=== PATIENT | male | born 1985 | race Caucasian/White ===

== ENCOUNTER 2018-09-08 14:53 | Inpatient (IN) | payer OTHER ==
[2018-09-08 17:21] VITALS: BMI 21.9
--- NOTE | 2018-09-08 19:47 | HP ---
CIWA Score - Admission Criteria OASAS Guidelines: Admission for Medically Managed Detox: Requires at least one of the followin. CIWA greater than 12 2. Seizures within the past 24 hours 3. Delirium tremens within the past 24 hours 4. Hallucinations within the past 24 hours 5. Acute intervention needed for co occurring medical disorder 6. Acute intervention needed for co occurring psychiatric disorder 7. Severe withdrawal that cannot be handled at a lower level of care (continued vomiting, continued diarrhea, abnormal vital signs) requiring intravenous medication and/or fluids 8. Admission ROS S - HPI Chief Complaint: Seeking admission to Rehab. Allergies/Adverse Reactions: Allergies Allergy/AdvReac Type Severity Reaction Status Date / Time shellfish derived Allergy Severe Swelling Verified 09/08/18 18:14 No Known Drug Allergies Allergy Unknown Verified 09/08/18 18:14 seafood Allergy Severe Swelling Uncoded 09/08/18 18:14 NKDA Allergy Uncoded 09/08/18 18:14 History of Present Illness: 33 years old male is seeking admission to Rehab. Patient has been in previous Rehab. at [place], [place]. Patient has medical history of asthma and low back pain. Denies suicide attempt or suicidal ideation at this time. Exam Limitations: No Limitations - Ebola screening Have you traveled outside of the country in the last 21 days: No Have you had contact with anyone from an Ebola affected area: No Have you been sick,other than usual withdrawal symptoms: No Do you have a fever: No - Review of Systems Constitutional: No Symptoms Reported EENT: reports: No Symptoms Reported Respiratory: reports: No Symptoms reported Cardiac: reports: No Symptoms Reported GI: reports: No Symptoms Reported : reports: No Symptoms Reported Musculoskeletal: reports: No Symptoms Reported Integumentary: reports: No Symptoms Reported Neuro: reports: No Symptoms reported Endocrine: reports: No Symptoms Reported Hematology: reports: No Symptoms Reported Psychiatric: reports: Judgement Intact, Mood/Affect Appropiate, Orientated x3 Other Systems: Reviewed and Negative Patient History - Patient Medical History Hx Anemia: No Hx Asthma: Yes (Not on medication) Hx Chronic Obstructive Pulmonary Disease (COPD): No Hx Cancer: No Hx Cardiac Disorders: No Hx Congestive Heart Failure: No Hx Hypertension: No Hx Hypercholesterolemia: No Hx Pacemaker: No HX Cerebrovascular Accident: No Hx Seizures: No Hx Dementia: No Hx Diabetes: No Hx Gastrointestinal Disorders: No Hx Liver Disease: No Hx Genitourinary Disorders: No Hx Sexually Transmitted Disorders: No Hx Renal Disease (ESRD): No Hx Thyroid Disease: No Hx Human Immunodeficiency Virus (HIV): No Hx Hepatitis C: No Hx Depression: No Hx Suicide Attempt: No (Denies suicidal ideation at this time) Hx Bipolar Disorder: No Hx Schizophrenia: No Other Medical History: low back pain- Not on medication - Patient Surgical History Past Surgical History: No Hx Neurologic Surgery: No Hx Cataract Extraction: No Hx Cardiac Surgery: No Hx Lung Surgery: No Hx Abdominal Surgery: No Hx Appendectomy: No Hx Cholecystectomy: No Hx Genitourinary Surgery: No Hx Orthopedic Surgery: No Anesthesia Reaction: No - PPD History Previous Implant?: Yes Documented Results: Negative w/o proof Implanted On Prior [facility] Admission?: No Date: 06/06/18 PPD to be Administered?: Yes - Reproductive History Patient is a Female of Child Bearing Age (11 -55 yrs old): No (Male) - Smoking Cessation Smoking history: Current every day smoker Have you smoked in the past 12 months: Yes Aproximately how many cigarettes per day: 20 Cigars Per Day: 0 Hx Chewing Tobacco Use: No Initiated information on smoking cessation: Yes 'Breaking Loose' booklet given: 09/08/18 - Substance & Tx. History Hx Alcohol Use: No Hx Substance Use: Yes Substance Use Type: Cocaine, Heroin, Marijuana, Tranquilizers Hx Substance Use Treatment: Yes - Substances Abused Heroin Route: Inhalation Frequency: Daily Amount used: 1 bundle Age of first use: 27 Date of Last Use: 09/08/18 Cocaine Route: Inhalation Frequency: 1-3 times last 30 days Amount used: 1/2 gm Age of first use: 18 Family Disease History - Family Disease History Family History: Denies Admission Physical Exam [facility] - Vital Signs Vital Signs: Vital Signs - 24 hr 09/08/18 17:15 Temperature 96.9 F L Pulse Rate 80 Respiratory 18 Rate Blood Pressure 104/61 - Physical General Appearance: Yes: Within Normal Limits HEENTM: Yes: Within Normal Limits, Normocephalic, Normal Voice, ANTONI Respiratory: Yes: Lungs Clear, Normal Breath Sounds, No Respiratory Distress Neck: Yes: Supple Breast: Yes: Breast Exam Deferred Cardiology: Yes: Regular Rhythm, Regular Rate Abdominal: Yes: Normal Bowel Sounds Genitourinary: Yes: Within Normal Limits Back: Yes: Normal Inspection Musculoskeletal: Yes: Within Normal Limits Extremities: Yes: Normal Capillary Refill Neurological: Yes: stretcher helper II-XII NML intact, Alert, Normal Mood/Affect Integumentary: Yes: Within Normal Limits Lymphatic: Yes: Within Normal Limits - Diagnostic (1) Asthma Current Visit: Yes Status: Chronic (2) Cocaine dependence Current Visit: Yes Status: Suspected Qualifiers: Substance use status: uncomplicated Qualified Code(s): F14.20 - Cocaine dependence, uncomplicated (3) Nicotine dependence Current Visit: Yes Status: Chronic Qualifiers: Nicotine product type: cigarettes Substance use status: uncomplicated Qualified Code(s): F17.210 - Nicotine dependence, cigarettes, uncomplicated (4) Opioid dependence Current Visit: Yes Status: Chronic Qualifiers: Substance use status: uncomplicated Qualified Code(s): F11.20 - Opioid dependence, uncomplicated Cleared for Admission [facility] - Detox or Rehab [facility] Level of Care: Observation Bed Claeared for Rehab Admission: Yes [facility] Breath Alcohol Content Breath Alcohol Content: 0 Urine Drug Screen - Results Drug Screen Negative: No Urine Drug Screen Results: THC-Marijuana, ALEKSEY-Cocaine, OPI-Opiates, MDMA-Ecstasy , MTD-Methadone, FEN-Fentanyl Inpatient Rehab Admission - Initial Determination Are CD services needed?: Yes Free of communicable disease: Yes Not in need of hospitalization: Yes - Rehab Admission Criteria Previous failed treatment: Yes Poor recovery environment: Yes Comorbidities: Yes Lacks judgement: No Patient is meeting Inpatient Rehab admission criteria:: Yes
[2018-09-08] MEDS ORDERED: NICOTINE POLACRILEX 2 MG GUM BC PRN (20:01)
[2018-09-08] MEDS ORDERED: LOPERAMIDE HCL 2 MG CAPSULE PO PRN (20:01)
[2018-09-08] MEDS ORDERED: MAGNESIUM HYDROX 2400MG/30ML ORAL SUSPENSION 30 ML CUP PO PRN (20:01)
[2018-09-08] MEDS ORDERED: MENTHOL/PHENOL 1 EACH UD MM PRN (20:01)
[2018-09-08] MEDS ORDERED: guaiFENesin/D-METHORPHAN HB 10 ML UNIT-DOSE CUPS PO PRN (20:01)
[2018-09-08] MEDS ORDERED: MAGNESIUM CITRATE 300 ML BOTTLE PO PRN (20:01)
[2018-09-08] MEDS ORDERED: P-EPHED 60MG/TRIPROLIDI 2.5MG TABLET PO PRN (20:01)
[2018-09-08] MEDS ORDERED: ACETAMINOPHEN 325 MG TABLET (FP) PO PRN (20:01)
[2018-09-08] MEDS ORDERED: MAG HYDROX/AL HYDROX/SIMETH 30 ML UNIT-DOSE CUP PO PRN (20:01)
[2018-09-08] MEDS ORDERED: IBUPROFEN 400 MG TABLET (FP) PO PRN (20:01)
[2018-09-08] MEDS ORDERED: MELATONIN 5 MG TABLETS PO PRN (22:00)
[2018-09-08] MEDS: THIAMINE HCL 100 MG TABLET (FP) PO SCH (22:28)
[2018-09-08] MEDS ORDERED: TUBERCULIN PPD 5 TU/0.1ML VIAL ID ONE (22:31)
[2018-09-09 03:12] LABS: URINE APPEARANCE CLEAR; URINE BILIRUBIN NEGATIVE (<2.0 mg/dL); URINE COLOR YELLOW; URINE GLUCOSE (UA) NEGATIVE (NEGATIVE); URINE KETONE NEGATIVE (NEGATIVE); URINE LEUK ESTERASE NEGATIVE (NEGATIVE); URINE NITRITE NEGATIVE (NEGATIVE); URINE PROTEIN NEGATIVE (NEGATIVE)
[2018-09-09] MEDS ORDERED: METHADONE HCL 10 MG TABLET PO ONE (09:42)
[2018-09-09] MEDS ORDERED: METHADONE 80 MG, METHADONE 20 MG PO ONE (10:00)
[2018-09-09] MEDS ORDERED: METHADONE HCL 10 MG TABLET ONE (10:01)
[2018-09-09] MEDS ORDERED: METHADONE HCL 40 MG DISPERSABLE TABLET ONE (10:02)
[2018-09-09] MEDS: PRENATAL VITAMINS W/ FOLIC ACID TABLET (FP) PO SCH (10:16)
[2018-09-09] MEDS: NICOTINE 14 MG/24 HOURS TOPICAL PATCH TD SCH (10:16)
--- NOTE | 2018-09-09 10:46 | HP ---
Psychiatrist Admission - Data Date of interview: 09/09/18 Admission source: [facility] Identifying data: Patient is a 33 year old single male, father of four, unemployed (denies receiving financial assistance) and is currently homeless. This is patient's first admission to rehab at [facility]. Patient admitted to for opiate dependence. Medical History: Asthma Psychiatric History: Patient denies h/o psychiatric hospitalizations, outpatient care, and suicide attempt. Patient is currently on methadone maintenance of 100mg daily at the [facility]. Physical/Sexual Abuse/Trauma History: denies. Vital Signs: Vital Signs - 24 hr 09/08/18 09/08/18 09/09/18 17:15 22:00 00:30 Temperature 96.9 F L 97.9 F Pulse Rate 80 76 Respiratory 18 18 18 Rate Blood Pressure 104/61 119/65 09/09/18 09/09/18 03:30 06:42 Temperature 98.4 F Pulse Rate 72 Respiratory 18 16 Rate Blood Pressure 109/66 Allergies/Adverse Reactions: Allergies Allergy/AdvReac Type Severity Reaction Status Date / Time shellfish derived Allergy Severe Swelling Verified 09/08/18 18:14 No Known Drug Allergies Allergy Unknown Verified 09/08/18 18:14 seafood Allergy Severe Swelling Uncoded 09/08/18 18:14 NKDA Allergy Uncoded 09/08/18 18:14 Date of last physical exam: 09/08/18 Concur with the findings of this exam: Yes - Substance Abuse/Tx History Hx Alcohol Use: No Hx Substance Use: Yes (Heroin- 1.5 bundle daily Cocaine- rarely) Substance Use Type: Cocaine, Heroin Hx Substance Use Treatment: Yes ([facility]) Mental Status Exam - Mental Status Exam Alert and Oriented to: Time, Place, Person Cognitive Function: Good Patient Appearance: Well Groomed Mood: Hopeful Affect: Appropriate Patient Behavior: Appropriate, Cooperative Speech Pattern: Clear, Appropriate Voice Loudness: Normal Thought Process: Intact, Goal Oriented Thought Disorder: Not Present Hallucinations: Denies Suicidal Ideation: Denies Homicidal Ideation: Denies Insight/Judgement: Poor Sleep: Fair Appetite: Fair Muscle strength/Tone: Normal Gait/Station: Normal Psychiatric Findings - Problem List ([place] 1, 2,3) (1) Methadone maintenance therapy patient Current Visit: Yes Status: Chronic (2) Opioid dependence Current Visit: Yes Status: Acute Qualifiers: Substance use status: uncomplicated Qualified Code(s): F11.20 - Opioid dependence, uncomplicated (3) Cocaine dependence Current Visit: No Status: Suspected Qualifiers: Substance use status: uncomplicated Qualified Code(s): F14.20 - Cocaine dependence, uncomplicated (4) Nicotine dependence Current Visit: Yes Status: Chronic Qualifiers: Nicotine product type: cigarettes Substance use status: uncomplicated Qualified Code(s): F17.210 - Nicotine dependence, cigarettes, uncomplicated - Initial Treatment Plan Initial Treatment Plan: Psychoeducation provided. Detoxification intoxicaton in progress. Observation.
[2018-09-09 15:15] LABS: HEMATOCRIT 42.8 % (35.4-49); HEMOGLOBIN 14.6 GM/dL (11.7-16.9); MCH 30.2 pg (25.7-33.7); MCHC 34.2 g/dl (32.0-35.9); MEAN CELL VOLUME 88.3 fl (80-96); MEAN PLT VOLUME 10.2 fl (7.5-11.1); PLATELET COUNT 229 K/MM3 (134-434); RBC 4.85 M/mm3 (4.00-5.60); RDW 14.5 % (11.9-15.9); WHITE BLOOD COUNT 4.1 K/mm3 (4.0-10.0)
[2018-09-09 15:30] LABS: ALBUMIN 3.6 g/dl (3.4-5.0); ALK PHOS 57 U/L (45-117); ANION GAP 8 MMOL/L (8-16); BILIRUBIN,TOTAL 0.2 mg/dL (0.2-1); BLOOD UREA NITROGEN 13 mg/dL (7-18); CALCIUM 8.8 mg/dL (8.5-10.1); CHLORIDE 104 mmol/L (98-107); CO2 28 mmol/L (21-32); CREATININE 0.7 mg/dL (0.55-1.3); GLUCOSE,RANDOM 80 mg/dL (74-106); POTASSIUM 4.4 mmol/L (3.5-5.1); SGOT/AST 16 U/L (15-37); SGPT/ALT 29 U/L (13-61); SODIUM 141 mmol/L (136-145); TOT PROT 6.6 g/dl (6.4-8.2)
[2018-09-09] MEDS: THIAMINE HCL 100 MG TABLET (FP) PO SCH (21:04)
[2018-09-10] MEDS ORDERED: METHADONE HCL 10 MG TABLET PO SCH (06:00)
[2018-09-10] MEDS: METHADONE 80 MG, METHADONE 20 MG PO SCH (06:25)
[2018-09-10] MEDS ORDERED: METHADONE HCL 40 MG DISPERSABLE TABLET ONE (06:25)
[2018-09-10] MEDS ORDERED: METHADONE HCL 10 MG TABLET ONE (06:25)
[2018-09-10] MEDS: PRENATAL VITAMINS W/ FOLIC ACID TABLET (FP) PO SCH (09:55)
[2018-09-10] MEDS: NICOTINE 14 MG/24 HOURS TOPICAL PATCH TD SCH (09:57)
--- NOTE | 2018-09-10 15:44 | EKG ---
Test Reason : Blood Pressure : / mmHG Vent. Rate : 066 BPM Atrial Rate : 066 BPM P-R Int : 160 ms QRS Dur : 100 ms QT Int : 400 ms P-R-T Axes : 070 076 066 degrees QTc Int : 419 ms POOR DATA QUALITY, INTERPRETATION MAY BE ADVERSELY AFFECTED NORMAL SINUS RHYTHM NORMAL ECG WHEN COMPARED WITH ECG OF 04-JUN-2018 16:36, INCOMPLETE RIGHT BUNDLE BRANCH BLOCK IS NO LONGER PRESENT Confirmed by ELIDA NINO, SAM ([id number]) on 09/10/2018 3:43:57 PM Referred By: Confirmed By:SAM MARRERO MD
[2018-09-10] MEDS: THIAMINE HCL 100 MG TABLET (FP) PO SCH (21:08)
[2018-09-11] MEDS ORDERED: METHADONE HCL 10 MG TABLET ONE (04:29)
[2018-09-11] MEDS ORDERED: METHADONE HCL 40 MG DISPERSABLE TABLET ONE (04:29)
[2018-09-11] MEDS: METHADONE 80 MG, METHADONE 20 MG PO SCH (06:44)
[2018-09-11] MEDS: NICOTINE 14 MG/24 HOURS TOPICAL PATCH TD SCH (09:28)
[2018-09-11] MEDS: PRENATAL VITAMINS W/ FOLIC ACID TABLET (FP) PO SCH (09:28)
[2018-09-11] MEDS: THIAMINE HCL 100 MG TABLET (FP) PO SCH (21:08)
[2018-09-12] MEDS ORDERED: METHADONE HCL 10 MG TABLET ONE (04:45)
[2018-09-12] MEDS ORDERED: METHADONE HCL 40 MG DISPERSABLE TABLET ONE (04:46)
[2018-09-12] MEDS: METHADONE 80 MG, METHADONE 20 MG PO SCH (06:31)
[2018-09-12] MEDS: PRENATAL VITAMINS W/ FOLIC ACID TABLET (FP) PO SCH (09:31)
[2018-09-12] MEDS: NICOTINE 14 MG/24 HOURS TOPICAL PATCH TD SCH (09:31)
[2018-09-12] MEDS: THIAMINE HCL 100 MG TABLET (FP) PO SCH (21:00)
[2018-09-13] MEDS ORDERED: METHADONE HCL 40 MG DISPERSABLE TABLET ONE (03:08)
[2018-09-13] MEDS ORDERED: METHADONE HCL 10 MG TABLET ONE (03:08)
[2018-09-13] MEDS: METHADONE 80 MG, METHADONE 20 MG PO SCH (06:11)
[2018-09-13] MEDS: NICOTINE 14 MG/24 HOURS TOPICAL PATCH TD SCH (09:33)
[2018-09-13] MEDS: PRENATAL VITAMINS W/ FOLIC ACID TABLET (FP) PO SCH (09:33)
[2018-09-13] MEDS: THIAMINE HCL 100 MG TABLET (FP) PO SCH (21:01)
[2018-09-14] MEDS ORDERED: METHADONE HCL 10 MG TABLET ONE (03:08)
[2018-09-14] MEDS ORDERED: METHADONE HCL 40 MG DISPERSABLE TABLET ONE (03:08)
[2018-09-14] MEDS: METHADONE 80 MG, METHADONE 20 MG PO SCH (06:39)
[2018-09-14] MEDS: PRENATAL VITAMINS W/ FOLIC ACID TABLET (FP) PO SCH (09:31)
[2018-09-14] MEDS: NICOTINE 14 MG/24 HOURS TOPICAL PATCH TD SCH (09:31)
[2018-09-14] MEDS: THIAMINE HCL 100 MG TABLET (FP) PO SCH (21:00)
[2018-09-15] MEDS ORDERED: METHADONE HCL 10 MG TABLET ONE (05:12)
[2018-09-15] MEDS ORDERED: METHADONE HCL 40 MG DISPERSABLE TABLET ONE (05:13)
[2018-09-15] MEDS: METHADONE 80 MG, METHADONE 20 MG PO SCH (06:28)
[2018-09-15] MEDS: PRENATAL VITAMINS W/ FOLIC ACID TABLET (FP) PO SCH (10:02)
[2018-09-15] MEDS: NICOTINE 14 MG/24 HOURS TOPICAL PATCH TD SCH (10:02)
--- NOTE | 2018-09-15 14:20 | PN ---
Psychiatric Progress Note Vital Signs: Vital Signs Period Temp Pulse Resp BP Sys/Goins Pulse Ox Last 24 Hr 97.9 F 74 18-18 117/82 Date of Session: 09/15/18 Chief Complaint:: "I can't sleep." HPI: Patient admitted to for opiate dependence. ROS: Asthma Current Medications: Active Medications Generic Name Dose Route Start Last Admin Trade Name Freq PRN Reason Stop Dose Admin Acetaminophen 650 mg 09/08/18 20:01 Tylenol - PO Q4H PRN FEVER Al Hydroxide/Mg Hydroxide 30 ml 09/08/18 20:01 Mylanta Oral Suspension - PO Q6H PRN DYSPEPSIA Eucalyptus/Menthol/Phenol/Sorbitol 1 each 09/08/18 20:01 Cepastat Lozenge - MM Q4H PRN SORE THROAT Guaifenesin 10 ml 09/08/18 20:01 Robitussin Dm - PO Q6H PRN COUGH Ibuprofen 400 mg 09/08/18 20:01 Motrin - PO Q6H PRN Pain level 4-6 Loperamide HCl 4 mg 09/08/18 20:01 Imodium - PO Q6H PRN DIARRHEA Magnesium Citrate 300 ml 09/08/18 20:01 Citroma - PO Q48H PRN CONSTIPATION Magnesium Hydroxide 30 ml 09/08/18 20:01 Milk Of Magnesia - PO DAILY PRN CONSTIPATION Melatonin 5 mg 09/08/18 22:00 Melatonin PO HS PRN INSOMNIA Methadone HCl 80 mg/ Methadone 100 mg 09/10/18 06:00 09/15/18 06:28 HCl 20 mg PO 09/16/18 05:59 100 mg DAILY@0600 GAIL Administration Nicotine 14 mg 09/09/18 10:00 09/15/18 10:02 Nicoderm Patch - TD Not Given DAILY GAIL Nicotine Polacrilex 2 mg 09/08/18 20:01 Nicorette Gum - BC Q2H PRN NICOTINE REPLACEMENT RX Multivit/Folic Acid/Iron 1 tab 09/09/18 10:00 09/15/18 10:02 Vitamins (Sjr) - PO 1 tab DAILY GAIL Administration Pseudoephedrine/Triprolidine 1 combo 09/08/18 20:01 Actifed - PO TID PRN NASAL CONGESTION Thiamine HCl 100 mg 09/08/18 22:00 09/14/18 21:00 Vitamin B1 - PO 100 mg HS GAIL Administration Medication(s) Change(s): Yes. Will add Seroquel 25mg qhs. Current Side Effect: No Lab tests ordered: No Lab tests reviewed: Yes Provider note:: Patient c/o difficulty sleeping. He reports taking melatonin and trazodone in the past with non favorable effects. Patient reports taking seroquel with good effect. Will order seroquel 25mg qhs. Psychoeducation and sleep hygiene provided. Verbal consent given. Total face to face time:: 25 Mental Status Exam - Mental Status Exam Alert and Oriented to: Time, Place, Person Cognitive Function: Good Patient Appearance: Well Groomed Mood: Hopeful Affect: Appropriate Patient Behavior: Appropriate, Cooperative Speech Pattern: Appropriate Voice Loudness: Normal Thought Process: Intact, Goal Oriented Thought Disorder: Not Present Hallucinations: Denies Suicidal Ideation: Denies Homicidal Ideation: Denies Insight/Judgement: Poor Sleep: Poorly Appetite: Fair Muscle strength/Tone: Normal Gait/Station: Normal Psychiatric Treatment Plan - Problem List (1) Methadone maintenance therapy patient Current Visit: Yes (2) Opioid dependence Current Visit: Yes Qualifiers: Substance use status: uncomplicated Qualified Code(s): F11.20 - Opioid dependence, uncomplicated (3) Cocaine dependence Current Visit: No Qualifiers: Substance use status: uncomplicated Qualified Code(s): F14.20 - Cocaine dependence, uncomplicated (4) Nicotine dependence Current Visit: Yes Qualifiers: Nicotine product type: cigarettes Substance use status: uncomplicated Qualified Code(s): F17.210 - Nicotine dependence, cigarettes, uncomplicated (5) Insomnia Current Visit: Yes
[2018-09-15] MEDS: QUEtiapine FUMARATE 25 MG TABLET (FP) PO SCH (21:00)
[2018-09-15] MEDS: THIAMINE HCL 100 MG TABLET (FP) PO SCH (21:00)
[2018-09-16] MEDS ORDERED: METHADONE HCL 10 MG TABLET PO SCH (07:00)
[2018-09-16] MEDS ORDERED: METHADONE HCL 40 MG DISPERSABLE TABLET ONE (07:15)
[2018-09-16] MEDS ORDERED: METHADONE HCL 10 MG TABLET ONE (07:15)
[2018-09-16] MEDS: METHADONE 80 MG, METHADONE 20 MG PO SCH (07:26)
[2018-09-16] MEDS: PRENATAL VITAMINS W/ FOLIC ACID TABLET (FP) PO SCH (10:03)
[2018-09-16] MEDS: NICOTINE 14 MG/24 HOURS TOPICAL PATCH TD SCH (10:03)
[2018-09-16] MEDS: THIAMINE HCL 100 MG TABLET (FP) PO SCH (21:11)
[2018-09-16] MEDS: QUEtiapine FUMARATE 25 MG TABLET (FP) PO SCH (21:11)
[2018-09-17] MEDS ORDERED: METHADONE HCL 40 MG DISPERSABLE TABLET ONE (03:15)
[2018-09-17] MEDS ORDERED: METHADONE HCL 10 MG TABLET ONE (03:15)
[2018-09-17] MEDS: METHADONE 80 MG, METHADONE 20 MG PO SCH (06:49)
[2018-09-17] MEDS: PRENATAL VITAMINS W/ FOLIC ACID TABLET (FP) PO SCH (09:48)
[2018-09-17] MEDS: NICOTINE 14 MG/24 HOURS TOPICAL PATCH TD SCH (09:49)
[2018-09-17] MEDS: QUEtiapine FUMARATE 25 MG TABLET (FP) PO SCH (21:10)
[2018-09-17] MEDS: THIAMINE HCL 100 MG TABLET (FP) PO SCH (21:10)
[2018-09-18] MEDS ORDERED: METHADONE HCL 10 MG TABLET ONE (03:11)
[2018-09-18] MEDS ORDERED: METHADONE HCL 40 MG DISPERSABLE TABLET ONE (03:11)
[2018-09-18] MEDS: METHADONE 80 MG, METHADONE 20 MG PO SCH (06:09)
[2018-09-18] MEDS: PRENATAL VITAMINS W/ FOLIC ACID TABLET (FP) PO SCH (10:12)
[2018-09-18] MEDS: NICOTINE 14 MG/24 HOURS TOPICAL PATCH TD SCH (10:12)
[2018-09-18] MEDS: QUEtiapine FUMARATE 25 MG TABLET (FP) PO SCH (21:04)
[2018-09-18] MEDS: THIAMINE HCL 100 MG TABLET (FP) PO SCH (21:04)
[2018-09-19] MEDS ORDERED: METHADONE HCL 10 MG TABLET ONE (04:16)
[2018-09-19] MEDS ORDERED: METHADONE HCL 40 MG DISPERSABLE TABLET ONE (04:16)
[2018-09-19] MEDS: METHADONE 80 MG, METHADONE 20 MG PO SCH (06:15)
[2018-09-19] MEDS: PRENATAL VITAMINS W/ FOLIC ACID TABLET (FP) PO SCH (09:46)
[2018-09-19] MEDS: NICOTINE 14 MG/24 HOURS TOPICAL PATCH TD SCH (09:47)
[2018-09-19] MEDS: THIAMINE HCL 100 MG TABLET (FP) PO SCH (21:04)
[2018-09-19] MEDS: QUEtiapine FUMARATE 25 MG TABLET (FP) PO SCH (21:04)
[2018-09-20] MEDS ORDERED: METHADONE HCL 10 MG TABLET ONE (04:15)
[2018-09-20] MEDS ORDERED: METHADONE HCL 40 MG DISPERSABLE TABLET ONE (04:15)
[2018-09-20] MEDS: METHADONE 80 MG, METHADONE 20 MG PO SCH (06:18)
[2018-09-20] MEDS: NICOTINE 14 MG/24 HOURS TOPICAL PATCH TD SCH (09:31)
[2018-09-20] MEDS: PRENATAL VITAMINS W/ FOLIC ACID TABLET (FP) PO SCH (09:31)
[2018-09-20] MEDS: QUEtiapine FUMARATE 25 MG TABLET (FP) PO SCH (21:00)
[2018-09-20] MEDS: THIAMINE HCL 100 MG TABLET (FP) PO SCH (21:00)
[2018-09-21] MEDS ORDERED: METHADONE HCL 10 MG TABLET ONE (02:11)
[2018-09-21] MEDS ORDERED: METHADONE HCL 40 MG DISPERSABLE TABLET ONE (02:12)
[2018-09-21] MEDS: METHADONE 80 MG, METHADONE 20 MG PO SCH (06:14)
[2018-09-21] MEDS: PRENATAL VITAMINS W/ FOLIC ACID TABLET (FP) PO SCH (09:41)
[2018-09-21] MEDS: NICOTINE 14 MG/24 HOURS TOPICAL PATCH TD SCH (09:41)
--- NOTE | 2018-09-21 10:43 | PN ---
Psychiatric Progress Note Vital Signs: Vital Signs Period Temp Pulse Resp BP Sys/Goins Pulse Ox Last 24 Hr 97.4 F 82 18-18 108/62 Date of Session: 09/21/18 Chief Complaint:: Discharge Note HPI: Patient addressing Cocaine Dependence comormid with Opioid Dependence on Agonist Therapy, Nicotine Dependence ROS: Asthma Current Medications: Active Medications Generic Name Dose Route Start Last Admin Trade Name Freq PRN Reason Stop Dose Admin Acetaminophen 650 mg 09/08/18 20:01 Tylenol - PO Q4H PRN FEVER Al Hydroxide/Mg Hydroxide 30 ml 09/08/18 20:01 Mylanta Oral Suspension - PO Q6H PRN DYSPEPSIA Eucalyptus/Menthol/Phenol/Sorbitol 1 each 09/08/18 20:01 Cepastat Lozenge - MM Q4H PRN SORE THROAT Guaifenesin 10 ml 09/08/18 20:01 Robitussin Dm - PO Q6H PRN COUGH Ibuprofen 400 mg 09/08/18 20:01 Motrin - PO Q6H PRN Pain level 4-6 Loperamide HCl 4 mg 09/08/18 20:01 Imodium - PO Q6H PRN DIARRHEA Magnesium Citrate 300 ml 09/08/18 20:01 Citroma - PO Q48H PRN CONSTIPATION Magnesium Hydroxide 30 ml 09/08/18 20:01 Milk Of Magnesia - PO DAILY PRN CONSTIPATION Melatonin 5 mg 09/08/18 22:00 Melatonin PO HS PRN INSOMNIA Methadone HCl 80 mg/ Methadone 100 mg 09/16/18 07:15 09/21/18 06:14 HCl 20 mg PO 100 mg DAILY@0600 GAIL Administration Nicotine 14 mg 09/09/18 10:00 09/21/18 09:41 Nicoderm Patch - TD Not Given DAILY GAIL Nicotine Polacrilex 2 mg 09/08/18 20:01 Nicorette Gum - BC Q2H PRN NICOTINE REPLACEMENT RX Multivit/Folic Acid/Iron 1 tab 09/09/18 10:00 09/21/18 09:41 Vitamins (Sjr) - PO 1 tab DAILY GAIL Administration Pseudoephedrine/Triprolidine 1 combo 09/08/18 20:01 Actifed - PO TID PRN NASAL CONGESTION Quetiapine Fumarate 25 mg 09/15/18 22:00 09/20/18 21:00 Seroquel - PO 25 mg HS GAIL Administration Thiamine HCl 100 mg 09/08/18 22:00 09/20/18 21:00 Vitamin B1 - PO 100 mg HS GAIL Administration Current Side Effect: No Lab tests ordered: Yes Lab tests reviewed: Yes Provider note:: Patient will complete this program on 09/22/18. he has met his treatment goals and will continue to address his issues in outpatient treatnent at [facility] at [address] [place] [address]. Told bond writer that from his participation in this program, he has learned that he has to surround himself with a sober support network in order to maitain abstinence. He is stable for discharge on 09/22/18 Total face to face time:: 35 Mental Status Exam - Mental Status Exam Alert and Oriented to: Time, Place, Person Cognitive Function: Fair Patient Appearance: Well Groomed Mood: Hopeful, Euthymic Affect: Appropriate Patient Behavior: Cooperative Speech Pattern: Clear Voice Loudness: Normal Thought Process: Intact Thought Disorder: Not Present Hallucinations: Denies Suicidal Ideation: Denies Homicidal Ideation: Denies Insight/Judgement: Fair Sleep: Fair Appetite: Fair Muscle strength/Tone: Normal Psychiatric Treatment Plan - Problem List (1) Cocaine dependence Current Visit: No Qualifiers: Substance use status: uncomplicated Qualified Code(s): F14.20 - Cocaine dependence, uncomplicated (2) Opioid dependence on agonist therapy Current Visit: Yes (3) Nicotine dependence Current Visit: Yes Qualifiers: Nicotine product type: cigarettes Substance use status: uncomplicated Qualified Code(s): F17.210 - Nicotine dependence, cigarettes, uncomplicated (4) Asthma Current Visit: Yes Initial treatment plan: Patient will be discharged tomorrow and referred to [facility] for outpatient treatment
[2018-09-21] MEDS: THIAMINE HCL 100 MG TABLET (FP) PO SCH (21:02)
[2018-09-21] MEDS: QUEtiapine FUMARATE 25 MG TABLET (FP) PO SCH (21:02)
[2018-09-22] MEDS ORDERED: METHADONE HCL 10 MG TABLET ONE (03:20)
[2018-09-22] MEDS ORDERED: METHADONE HCL 40 MG DISPERSABLE TABLET ONE (03:21)
[2018-09-22] MEDS: METHADONE 80 MG, METHADONE 20 MG PO SCH (06:01)
[2018-09-22 06:57] VITALS: BP 131/82; PULSE 81; TEMP 98.9
[2018-09-22] MEDS: NICOTINE 14 MG/24 HOURS TOPICAL PATCH TD SCH (10:22)
[2018-09-22] MEDS: PRENATAL VITAMINS W/ FOLIC ACID TABLET (FP) PO SCH (10:23)
== END 2018-09-22 09:15 | disposition home or self-care (01) | DRG 772 ==
LOC: YASAS 14:53 → Y5N 20:38
PROVIDERS: ADMIT Psychiatry & Neurology Psychiatry; ATTEND Psychiatry & Neurology Psychiatry
PROC: HZ42ZZZ Group Counseling for Substance Abuse Treatment, Cognitive-Behavioral (ICD-10-PCS; principal; 2018-09-08)
DX: F14.20 Cocaine dependence, uncomplicated (principal); F11.20 Opioid dependence, uncomplicated; F17.210 Nicotine dependence, cigarettes, uncomplicated; G47.00 Insomnia, unspecified; J45.909 Unspecified asthma, uncomplicated; M54.5 Low back pain
CPT/HCPCS: 36415; 80053; 81003; 85027; 86593; 93005; 93010

== ENCOUNTER 2019-02-05 14:27 | Inpatient (IN) | payer SELFPAY ==
[2019-02-05 14:59] VITALS: BMI 21.4
--- NOTE | 2019-02-05 15:35 | HP ---
COWS - Scale Resting Pulse: 1= SC 81-100 Sweatin= Chills/Flushing Restless Observation: 3= Extraneous Movement Pupil Size: 1= Pupils >than Normal Bone or Joint Aches: 2= Severe Diffuse Aches Runny Nose/ Eye Tearin= Runny Nose/Eyes GI Upset > 30mins: 2= Nausea/Diarrhea Tremor Observation: 2= Slight Tremor Visible Yawning Observation: 2= >3x During Session Anxiety or Irritability: 2=Irritable/Anxious Goose Flesh Skin: 0=Smooth Skin COWS Score: 18 CIWA Score - Admission Criteria OASAS Guidelines: Admission for Medically Managed Detox: Requires at least one of the followin. CIWA greater than 12 2. Seizures within the past 24 hours 3. Delirium tremens within the past 24 hours 4. Hallucinations within the past 24 hours 5. Acute intervention needed for co occurring medical disorder 6. Acute intervention needed for co occurring psychiatric disorder 7. Severe withdrawal that cannot be handled at a lower level of care (continued vomiting, continued diarrhea, abnormal vital signs) requiring intravenous medication and/or fluids 8. Admission ROS S - HPI Chief Complaint: i need help to stop using heroin,cocaine,marijuana, Allergies/Adverse Reactions: Allergies Allergy/AdvReac Type Severity Reaction Status Date / Time fish derived Allergy Severe Swelling Verified 02/05/19 17:17 shellfish derived Allergy Severe Swelling Verified 02/05/19 16:17 No Known Drug Allergies Allergy Verified 02/05/19 17:17 seafood Allergy Severe Swelling Uncoded 02/05/19 16:17 NKDA Allergy Uncoded 02/05/19 16:17 History of Present Illness: this 33 years old male with heroin,cocaine and marijuana dependence seeking detox,withdrawal symptom, seeking help last rehab 09/08/18 to 09/22/18 weight loss nicotine dependence 1/2 pack,do not want nicotine replacement longest period of sobriety 6 months plan for rehab history of asthma Exam Limitations: No Limitations - Ebola screening Have you traveled outside of the country in the last 21 days: No Have you had contact with anyone from an Ebola affected area: No - Review of Systems Constitutional: Malaise, Night Sweats, Changes in sleep, Weakness, Weight Stable , Unintentional Wgt. Loss EENT: reports: Tearing, Nose Congestion Respiratory: reports: No Symptoms reported, Other (asthma) Cardiac: reports: No Symptoms Reported GI: reports: Diarrhea, Nausea, Abdominal cramping : reports: No Symptoms Reported Musculoskeletal: reports: Back Pain, Muscle Pain Integumentary: reports: Dryness Neuro: reports: Headache, Tremors Endocrine: reports: No Symptoms Reported Hematology: reports: No Symptoms Reported Psychiatric: reports: No Sypmtoms Reported, Judgement Intact, Mood/Affect Appropiate, Orientated x3 Other Systems: Reviewed and Negative Patient History - Patient Medical History Hx Anemia: No Hx Asthma: Yes (Not on medication) Hx Chronic Obstructive Pulmonary Disease (COPD): No Hx Cancer: No Hx Cardiac Disorders: No Hx Congestive Heart Failure: No Hx Hypertension: No Hx Hypercholesterolemia: No Hx Pacemaker: No HX Cerebrovascular Accident: No Hx Seizures: No Hx Dementia: No Hx Diabetes: No Hx Gastrointestinal Disorders: No Hx Liver Disease: No Hx Genitourinary Disorders: No Hx Sexually Transmitted Disorders: No Hx Renal Disease (ESRD): No Hx Thyroid Disease: No Hx Human Immunodeficiency Virus (HIV): No (01/06 negative) Hx Hepatitis C: No Hx Depression: No Hx Suicide Attempt: No (Denies suicidal ideation at this time) Hx Bipolar Disorder: No Hx Schizophrenia: No Other Medical History: no suicidal,no homicidal - Patient Surgical History Past Surgical History: No Hx Neurologic Surgery: No Hx Cataract Extraction: No Hx Cardiac Surgery: No Hx Lung Surgery: No Hx Breast Surgery: No Hx Breast Biopsy: No Hx Abdominal Surgery: No Hx Appendectomy: No Hx Cholecystectomy: No Hx Genitourinary Surgery: No Hx Section: No Hx Orthopedic Surgery: No Anesthesia Reaction: No - PPD History Previous Implant?: Yes Documented Results: Negative w/proof Implanted On Prior [facility] Admission?: Yes Date: 09/10/18 Results: 0 mm PPD to be Administered?: No - Smoking Cessation Smoking history: Current every day smoker Have you smoked in the past 12 months: Yes Aproximately how many cigarettes per day: 10 Cigars Per Day: 0 Hx Chewing Tobacco Use: No Initiated information on smoking cessation: Yes 'Breaking Loose' booklet given: 02/05/19 - Substance & Tx. History Hx Substance Use: Yes Substance Use Type: Cocaine, Heroin Hx Substance Use Treatment: Yes (C 09/08/18 to 09/22/18) - Substances abused Heroin Substance route: Inhalation Frequency: Daily Amount used: $60 Age of first use: 32 Date of last use: 02/05/19 Cocaine Substance route: Inhalation Frequency: 1-2 times per week Amount used: $40 monthly Age of first use: 17 Date of last use: 01/29/19 Family Disease History - Family Disease History Family History: Denies Admission Physical Exam [facility] - Vital Signs Vital Signs: Vital Signs - 24 hr 02/05/19 14:50 Temperature 96.5 F L Pulse Rate 87 Respiratory 18 Rate Blood Pressure 120/79 - Physical General Appearance: Yes: Moderate Distress, Tremorous, Irritable, Sweating, Anxious HEENTM: Yes: Normocephalic, ANTONI, Pharynx Normal Respiratory: Yes: Lungs Clear, Normal Breath Sounds, No Respiratory Distress Neck: Yes: Within Normal Limits, Supple, Trachea in good position Breast: Yes: Within Normal Limits Cardiology: Yes: Within Normal Limits, Regular Rhythm, Regular Rate, S1, S2 Abdominal: Yes: Within Normal Limits, Normal Bowel Sounds, Non Tender, Flat, Soft Genitourinary: Yes: Within Normal Limits Back: Yes: Muscle Spasm Musculoskeletal: Yes: full range of Motion, Back pain, Muscle Pain Extremities: Yes: Within Normal Limits, Normal Range of Motion, Tremors Neurological: Yes: Within Normal Limits, doormaker II-XII NML intact, Fully Oriented, Alert, Motor Strength 5/5 Integumentary: Yes: Dry Lymphatic: Yes: Within Normal Limits - Diagnostic (1) Opioid dependence with withdrawal Current Visit: Yes Status: Acute (2) Cocaine dependence Current Visit: No Status: Suspected Qualifiers: Substance use status: uncomplicated Qualified Code(s): F14.20 - Cocaine dependence, uncomplicated (3) Asthma Current Visit: No Status: Chronic (4) Nicotine dependence Current Visit: No Status: Chronic Qualifiers: Nicotine product type: cigarettes Substance use status: uncomplicated Qualified Code(s): F17.210 - Nicotine dependence, cigarettes, uncomplicated (5) Weight loss Current Visit: Yes Status: Acute Cleared for Admission [facility] - Detox or Rehab [facility] Level of Care: Medically Managed Detox Regimen/Protocol: Methadone Breathalyzer - Breathalyzer Breathalyzer: 0 Urine Drug Screen - Test Device Lot number: [id number] Expiration date: 01/18/20 - Control Is test valid?: Yes - Results Drug screen NEGATIVE: No Urine drug screen results: THC-Marijuana, ALEKSEY-Cocaine, MET-Methamphetamine, FEN- Fentanyl, MOP-Opiates Inpatient Rehab Admission - Rehab Decision to Admit Inpatient rehab admission?: No
[2019-02-05] MEDS ORDERED: MAGNESIUM HYDROX 2400MG/30ML ORAL SUSPENSION 30 ML CUP PO PRN (15:42)
[2019-02-05] MEDS ORDERED: BISMUTH SUBSALICYLATE 524 MG/30 ML UD PO PRN (15:42)
[2019-02-05] MEDS ORDERED: hydrOXYzine PAMOATE 25 MG CAPSULE (FP) PO PRN (15:42)
[2019-02-05] MEDS ORDERED: IBUPROFEN 400 MG TABLET (FP) PO PRN (15:42)
[2019-02-05] MEDS ORDERED: MAGNESIUM CITRATE 300 ML BOTTLE PO PRN (15:42)
[2019-02-05] MEDS ORDERED: MAG HYDROX/AL HYDROX/SIMETH 30 ML UNIT-DOSE CUP PO PRN (15:42)
[2019-02-05] MEDS ORDERED: ACETAMINOPHEN 325 MG TABLET (FP) PO PRN ×2 (15:42)
[2019-02-05] MEDS ORDERED: MELATONIN 5 MG TABLETS PO PRN (15:42)
[2019-02-05] MEDS ORDERED: MENTHOL/PHENOL 1 EACH UD MM PRN (15:42)
[2019-02-05] MEDS ORDERED: cloNIDine HCL 0.1 MG TABLET PO PRN (15:42)
[2019-02-05] MEDS ORDERED: METHADONE HCL 10 MG TABLET (FOR DETOX USE ONLY) PO ONE ×2 (17:30→23:00)
[2019-02-05] MEDS: diazePAM 5 MG TABLET PO PRN (17:40)
[2019-02-05 20:17] LABS: PH,URINE 6.5 (5.0-8.0); URINE APPEARANCE CLEAR; URINE BILIRUBIN NEGATIVE (NEGATIVE); URINE COLOR YELLOW; URINE GLUCOSE (UA) NEGATIVE (NEGATIVE); URINE KETONE NEGATIVE (NEGATIVE); URINE LEUK ESTERASE NEGATIVE (NEGATIVE); URINE NITRITE NEGATIVE (NEGATIVE); URINE PROTEIN NEGATIVE (NEGATIVE)
[2019-02-05] MEDS: THIAMINE HCL 100 MG TABLET (FP) PO SCH (22:33)
[2019-02-06] MEDS ORDERED: METHADONE HCL 10 MG TABLET (FOR DETOX USE ONLY) PO ONE (10:00)
[2019-02-06] MEDS: PRENATAL VITAMINS W/ FOLIC ACID TABLET (FP) PO SCH (10:24)
[2019-02-06 11:03] LABS: ALBUMIN 3.3 g/dl (3.4-5.0); ALK PHOS 58 U/L (45-117); ANION GAP 2 MMOL/L (8-16); BILIRUBIN,TOTAL 0.1 mg/dL (0.2-1); BLOOD UREA NITROGEN 10 mg/dL (7-18); CALCIUM 9.2 mg/dL (8.5-10.1); CHLORIDE 104 mmol/L (98-107); CO2 33 mmol/L (21-32); CREATININE 0.8 mg/dL (0.55-1.3); GLUCOSE,RANDOM 89 mg/dL (74-106); HEMATOCRIT 43.8 % (35.4-49); HEMOGLOBIN 14.7 GM/dL (11.7-16.9); MCHC 33.6 g/dl (32.0-35.9); MEAN CELL VOLUME 89.4 fl (80-96); MEAN PLT VOLUME 9.5 fl (7.5-11.1); PLATELET COUNT 218 K/MM3 (134-434); POTASSIUM 4.7 mmol/L (3.5-5.1); RDW 14.4 % (11.9-15.9); SGOT/AST 13 U/L (15-37); SGPT/ALT 17 U/L (13-61); SODIUM 139 mmol/L (136-145); TOT PROT 6.3 g/dl (6.4-8.2); WHITE BLOOD COUNT 4.3 K/mm3 (4.0-10.0)
--- NOTE | 2019-02-06 14:04 | PN ---
[facility] COWS - Scale Resting Pulse: 0= [place] 80 or Below Sweatin= Chills/Flushing Restless Observation: 0= Sits Still Pupil Size: 0= Normal to Room Light Bone or Joint Aches: 1= Mild Discomfort Runny Nose/ Eye Tearin= Nasal Congestion GI Upset > 30mins: 0= None Tremor Observation of Outstretched Hands: 1= Tremor [place], Not Seen Yawning Observation: 2= >3x During Session Anxiety or Irritability: 2=Irritable/Anxious Goose Flesh Skin: 0=Smooth Skin COWS Score: 8 S Progress Note (SOAP) Subjective: c/o interrupted sleep, fatigue , chills Objective: 02/06/19 14:03 Vital Signs Temperature 96.1 F L 02/06/19 11:31 Pulse Rate 68 02/06/19 11:31 Respiratory Rate 18 02/06/19 11:31 Blood Pressure 127/71 02/06/19 11:31 O2 Sat by Pulse Oximetry (%) Laboratory Last Values WBC 4.3 K/mm3 (4.0-10.0) 02/06/19 07:00 RBC 4.90 M/mm3 (4.00-5.60) 02/06/19 07:00 Hgb 14.7 GM/dL (11.7-16.9) 02/06/19 07:00 Hct 43.8 % (35.4-49) 02/06/19 07:00 MCV 89.4 fl (80-96) 02/06/19 07:00 MCH 30.0 pg (25.7-33.7) 02/06/19 07:00 MCHC 33.6 g/dl (32.0-35.9) 02/06/19 07:00 RDW 14.4 % (11.9-15.9) 02/06/19 07:00 Plt Count 218 K/MM3 (134-434) 02/06/19 07:00 MPV 9.5 fl (7.5-11.1) 02/06/19 07:00 Sodium 139 mmol/L (136-145) 02/06/19 07:00 Potassium 4.7 mmol/L (3.5-5.1) 02/06/19 07:00 Chloride 104 mmol/L (98-107) 02/06/19 07:00 Carbon Dioxide 33 mmol/L (21-32) H 02/06/19 07:00 Anion Gap 2 MMOL/L (8-16) L 02/06/19 07:00 BUN 10 mg/dL (7-18) 02/06/19 07:00 Creatinine 0.8 mg/dL (0.55-1.3) 02/06/19 07:00 Creat Clearance w eGFR 112.75 (>60) 02/06/19 07:00 Random Glucose 89 mg/dL (74-106) 02/06/19 07:00 Calcium 9.2 mg/dL (8.5-10.1) 02/06/19 07:00 Total Bilirubin 0.1 mg/dL (0.2-1) L 02/06/19 07:00 AST 13 U/L (15-37) L 02/06/19 07:00 ALT 17 U/L (13-61) 02/06/19 07:00 Alkaline Phosphatase 58 U/L (45-117) 02/06/19 07:00 Total Protein 6.3 g/dl (6.4-8.2) L 02/06/19 07:00 Albumin 3.3 g/dl (3.4-5.0) L 02/06/19 07:00 Urine Color Yellow 02/05/19 17:00 Urine Appearance Clear 02/05/19 17:00 Urine pH 6.5 (5.0-8.0) D 02/05/19 17:00 Ur Specific [place] 1.024 (1.010-1.035) 02/05/19 17:00 Urine Protein Negative (NEGATIVE) 02/05/19 17:00 Urine Glucose (UA) Negative (NEGATIVE) 02/05/19 17:00 Urine Ketones Negative (NEGATIVE) 02/05/19 17:00 Urine Blood Negative (NEGATIVE) 02/05/19 17:00 Urine Nitrite Negative (NEGATIVE) 02/05/19 17:00 Urine Bilirubin Negative (NEGATIVE) 02/05/19 17:00 Urine Urobilinogen 1.0 mg/dL (0.2-1.0) 02/05/19 17:00 Ur Leukocyte Esterase Negative (NEGATIVE) 02/05/19 17:00 RPR Titer Nonreactive (NONREACTIVE) 02/06/19 07:00 labs noted Patient Aox3 no distress, full ROM ambulating in the unit withdrawal sx increase po fluids continue to monitor
[2019-02-06] MEDS: THIAMINE HCL 100 MG TABLET (FP) PO SCH (22:22)
[2019-02-06] MEDS: METHOCARBAMOL 500 MG TABLET PO PRN (22:24)
[2019-02-06] MEDS: diazePAM 5 MG TABLET PO PRN (22:24)
[2019-02-07 09:58] VITALS: PULSE 75
[2019-02-07] MEDS ORDERED: METHADONE HCL 10 MG TABLET (FOR DETOX USE ONLY) PO ONE (10:00)
[2019-02-07] MEDS: PRENATAL VITAMINS W/ FOLIC ACID TABLET (FP) PO SCH (10:16)
[2019-02-07] MEDS: METHOCARBAMOL 500 MG TABLET PO PRN (13:27)
[2019-02-07 14:38] VITALS: BP 110/50; TEMP 97.3
--- NOTE | 2019-02-07 16:57 | DS ---
[facility] Detox Discharge Summary Admission Date: 02/05/19 Discharge Date: 02/07/19 - History Present History: Cocaine Dependence, Opioid Dependence Pertinent Past History: Asthma - Physical Exam Results Vital Signs: Vital Signs Temperature 97.3 F L 02/07/19 14:37 Pulse Rate 75 02/07/19 14:37 Respiratory Rate 18 02/07/19 14:37 Blood Pressure 110/50 L 02/07/19 14:37 O2 Sat by Pulse Oximetry (%) Pertinent Admission Physical Exam Findings: withdrawal sx Laboratory Last Values WBC 4.3 K/mm3 (4.0-10.0) 02/06/19 07:00 RBC 4.90 M/mm3 (4.00-5.60) 02/06/19 07:00 Hgb 14.7 GM/dL (11.7-16.9) 02/06/19 07:00 Hct 43.8 % (35.4-49) 02/06/19 07:00 MCV 89.4 fl (80-96) 02/06/19 07:00 MCH 30.0 pg (25.7-33.7) 02/06/19 07:00 MCHC 33.6 g/dl (32.0-35.9) 02/06/19 07:00 RDW 14.4 % (11.9-15.9) 02/06/19 07:00 Plt Count 218 K/MM3 (134-434) 02/06/19 07:00 MPV 9.5 fl (7.5-11.1) 02/06/19 07:00 Sodium 139 mmol/L (136-145) 02/06/19 07:00 Potassium 4.7 mmol/L (3.5-5.1) 02/06/19 07:00 Chloride 104 mmol/L (98-107) 02/06/19 07:00 Carbon Dioxide 33 mmol/L (21-32) H 02/06/19 07:00 Anion Gap 2 MMOL/L (8-16) L 02/06/19 07:00 BUN 10 mg/dL (7-18) 02/06/19 07:00 Creatinine 0.8 mg/dL (0.55-1.3) 02/06/19 07:00 Creat Clearance w eGFR 112.75 (>60) 02/06/19 07:00 Random Glucose 89 mg/dL (74-106) 02/06/19 07:00 Calcium 9.2 mg/dL (8.5-10.1) 02/06/19 07:00 Total Bilirubin 0.1 mg/dL (0.2-1) L 02/06/19 07:00 AST 13 U/L (15-37) L 02/06/19 07:00 ALT 17 U/L (13-61) 02/06/19 07:00 Alkaline Phosphatase 58 U/L (45-117) 02/06/19 07:00 Total Protein 6.3 g/dl (6.4-8.2) L 02/06/19 07:00 Albumin 3.3 g/dl (3.4-5.0) L 02/06/19 07:00 Urine Color Yellow 02/05/19 17:00 Urine Appearance Clear 02/05/19 17:00 Urine pH 6.5 (5.0-8.0) D 02/05/19 17:00 Ur Specific [place] 1.024 (1.010-1.035) 02/05/19 17:00 Urine Protein Negative (NEGATIVE) 02/05/19 17:00 Urine Glucose (UA) Negative (NEGATIVE) 02/05/19 17:00 Urine Ketones Negative (NEGATIVE) 02/05/19 17:00 Urine Blood Negative (NEGATIVE) 02/05/19 17:00 Urine Nitrite Negative (NEGATIVE) 02/05/19 17:00 Urine Bilirubin Negative (NEGATIVE) 02/05/19 17:00 Urine Urobilinogen 1.0 mg/dL (0.2-1.0) 02/05/19 17:00 Ur Leukocyte Esterase Negative (NEGATIVE) 02/05/19 17:00 RPR Titer Nonreactive (NONREACTIVE) 02/06/19 07:00 Labs noted - Medication Discharge Medications: Ambulatory Orders NK [No Known Home Medication] 06/04/18 - Diagnosis (1) Opioid dependence with withdrawal Current Visit: Yes Status: Acute (2) Asthma Current Visit: No Status: Chronic Qualifiers: Asthma severity: mild Asthma persistence: intermittent (3) Nicotine dependence Current Visit: No Status: Acute Qualifiers: Nicotine product type: cigarettes Substance use status: uncomplicated Qualified Code(s): F17.210 - Nicotine dependence, cigarettes, uncomplicated (4) Cocaine dependence Current Visit: Yes Status: Acute Qualifiers: Substance use status: uncomplicated Qualified Code(s): F14.20 - Cocaine dependence, uncomplicated - AMA Did Patient Leave Against Medical Advice: Yes
--- NOTE | 2019-02-07 17:00 | PN ---
[facility] COWS - Scale Resting Pulse: 0= [place] 80 or Below Sweatin= No chills or Flushing Restless Observation: 0= Sits Still Pupil Size: 0= Normal to Room Light Bone or Joint Aches: 1= Mild Discomfort Runny Nose/ Eye Tearin= None GI Upset > 30mins: 0= None Tremor Observation of Outstretched Hands: 0= None Yawning Observation: 1= 1-2x During Session Anxiety or Irritability: 1=Feels Anxious/Irritable Goose Flesh Skin: 0=Smooth Skin COWS Score: 3 BHS Progress Note (SOAP) Subjective: interrupted sleep mild body discomfort Objective: 02/07/19 17:03 Vital Signs 02/07/19 02/07/19 09:57 14:37 Temperature 98.6 F 97.3 F L Pulse Rate 75 75 Respiratory 18 18 Rate Blood Pressure 119/70 110/50 L Laboratory Last Values WBC 4.3 K/mm3 (4.0-10.0) 02/06/19 07:00 RBC 4.90 M/mm3 (4.00-5.60) 02/06/19 07:00 Hgb 14.7 GM/dL (11.7-16.9) 02/06/19 07:00 Hct 43.8 % (35.4-49) 02/06/19 07:00 MCV 89.4 fl (80-96) 02/06/19 07:00 MCH 30.0 pg (25.7-33.7) 02/06/19 07:00 MCHC 33.6 g/dl (32.0-35.9) 02/06/19 07:00 RDW 14.4 % (11.9-15.9) 02/06/19 07:00 Plt Count 218 K/MM3 (134-434) 02/06/19 07:00 MPV 9.5 fl (7.5-11.1) 02/06/19 07:00 Sodium 139 mmol/L (136-145) 02/06/19 07:00 Potassium 4.7 mmol/L (3.5-5.1) 02/06/19 07:00 Chloride 104 mmol/L (98-107) 02/06/19 07:00 Carbon Dioxide 33 mmol/L (21-32) H 02/06/19 07:00 Anion Gap 2 MMOL/L (8-16) L 02/06/19 07:00 BUN 10 mg/dL (7-18) 02/06/19 07:00 Creatinine 0.8 mg/dL (0.55-1.3) 02/06/19 07:00 Creat Clearance w eGFR 112.75 (>60) 02/06/19 07:00 Random Glucose 89 mg/dL (74-106) 02/06/19 07:00 Calcium 9.2 mg/dL (8.5-10.1) 02/06/19 07:00 Total Bilirubin 0.1 mg/dL (0.2-1) L 02/06/19 07:00 AST 13 U/L (15-37) L 02/06/19 07:00 ALT 17 U/L (13-61) 02/06/19 07:00 Alkaline Phosphatase 58 U/L (45-117) 02/06/19 07:00 Total Protein 6.3 g/dl (6.4-8.2) L 02/06/19 07:00 Albumin 3.3 g/dl (3.4-5.0) L 02/06/19 07:00 Urine Color Yellow 02/05/19 17:00 Urine Appearance Clear 02/05/19 17:00 Urine pH 6.5 (5.0-8.0) D 02/05/19 17:00 Ur Specific [place] 1.024 (1.010-1.035) 02/05/19 17:00 Urine Protein Negative (NEGATIVE) 02/05/19 17:00 Urine Glucose (UA) Negative (NEGATIVE) 02/05/19 17:00 Urine Ketones Negative (NEGATIVE) 02/05/19 17:00 Urine Blood Negative (NEGATIVE) 02/05/19 17:00 Urine Nitrite Negative (NEGATIVE) 02/05/19 17:00 Urine Bilirubin Negative (NEGATIVE) 02/05/19 17:00 Urine Urobilinogen 1.0 mg/dL (0.2-1.0) 02/05/19 17:00 Ur Leukocyte Esterase Negative (NEGATIVE) 02/05/19 17:00 RPR Titer Nonreactive (NONREACTIVE) 02/06/19 07:00 Labs reviewed Assessment: 02/07/19 17:04 AOX3 in no distress EENT: wnl Full rom Ambulating in the unit Plan: detox completed
[2019-02-08] MEDS ORDERED: METHADONE (DETOX) 10 MG, METHADONE (DETOX) 5 MG PO ONE (10:00)
[2019-02-08] MEDS ORDERED: METHADONE HCL 10 MG TABLET (FOR DETOX USE ONLY) PO ONE (10:00)
[2019-02-09] MEDS ORDERED: METHADONE HCL 5 MG TABLET (FOR DETOX USE ONLY) PO ONE (06:00)
[2019-02-09] MEDS ORDERED: METHADONE HCL 10 MG TABLET (FOR DETOX USE ONLY) PO ONE (10:00)
[2019-02-10] MEDS ORDERED: METHADONE HCL 5 MG TABLET (FOR DETOX USE ONLY) PO ONE (06:00)
== END 2019-02-07 17:04 | disposition left against medical advice (07) | DRG 770 ==
LOC: YASAS 14:27 → Y6N 16:43
PROVIDERS: ADMIT Surgery; ATTEND Surgery
PROC: HZ2ZZZZ Detoxification Services for Substance Abuse Treatment (ICD-10-PCS; principal; 2019-02-05)
DX: F11.23 Opioid dependence with withdrawal (principal); F14.20 Cocaine dependence, uncomplicated; F17.210 Nicotine dependence, cigarettes, uncomplicated; J45.20 Mild intermittent asthma, uncomplicated; R63.4 Abnormal weight loss; Z91.013 Allergy to seafood
CPT/HCPCS: 36415; 80053; 81003; 85027; 86593

== ENCOUNTER 2022-05-05 13:43 | Inpatient (IN) | payer OTHER ==
[2022-05-05 15:53] VITALS: BMI 21.1
[2022-05-05] MEDS ORDERED: ACETAMINOPHEN 325 MG TABLET (FP) PO PRN ×2 (17:24)
[2022-05-05] MEDS ORDERED: ONDANSETRON *ODT* 4 MG TABLET SL PRN (17:24)
[2022-05-05] MEDS ORDERED: BISMUTH SUBSALICYLATE 524 MG/30 ML PO PRN (17:24)
[2022-05-05] MEDS ORDERED: BENZOCAINE/MENTHOL (CHLORASEPTIC ) LOZENGE MM PRN (17:24)
[2022-05-05] MEDS ORDERED: cloNIDine HCL 0.1 MG TABLET PO PRN (17:24)
[2022-05-05] MEDS ORDERED: IBUPROFEN 400 MG TABLET (FP) PO PRN (17:24)
[2022-05-05] MEDS ORDERED: IBUPROFEN 600 MG TABLET (FP) PO PRN (17:24)
[2022-05-05] MEDS ORDERED: DICYCLOMINE HCL 10 MG CAPSULE PO PRN (17:24)
[2022-05-05] MEDS ORDERED: LOPERAMIDE HCL 2 MG CAPSULE PO PRN (17:24)
[2022-05-05] MEDS ORDERED: MAGNESIUM HYDROX 2400MG/30ML ORAL SUSPENSION 30 ML CUP PO PRN (17:24)
[2022-05-05] MEDS ORDERED: MAG HYDROX/AL HYDROX/SIMETH 30 ML UNIT-DOSE CUP PO PRN (17:24)
[2022-05-05] MEDS ORDERED: MAGNESIUM CITRATE 300 ML BOTTLE PO PRN (17:24)
[2022-05-05] MEDS ORDERED: methaDONE HCL 10 MG TABLET (FOR DETOX USE ONLY) PO ONE (18:00)
[2022-05-05] MEDS: hydrOXYzine PAMOATE 25 MG CAPSULE (FP) PO SCH ×2 (19:17→23:33)
[2022-05-05] MEDS: METHOCARBAMOL 500 MG TABLET PO PRN (23:33)
[2022-05-05] MEDS: CEPHALEXIN MONOHYDRATE 500 MG CAPSULE (UD) PO SCH (23:33)
[2022-05-05] MEDS: CLINDAMYCIN PHOSPHATE 1% TOPICAL GEL 30 GM TUBE TP SCH (23:33)
[2022-05-05] MEDS: MELATONIN 5 MG TABLETS PO SCH (23:33)
[2022-05-05] MEDS: THIAMINE HCL 100 MG TABLET (FP) PO SCH (23:33)
[2022-05-06] MEDS: hydrOXYzine PAMOATE 25 MG CAPSULE (FP) PO SCH ×5 (07:05→23:21)
[2022-05-06] MEDS: CEPHALEXIN MONOHYDRATE 500 MG CAPSULE (UD) PO SCH ×3 (07:05→23:21)
[2022-05-06] MEDS ORDERED: methaDONE HCL 10 MG TABLET (FOR DETOX USE ONLY) ONE (10:11)
[2022-05-06] MEDS: CLINDAMYCIN PHOSPHATE 1% TOPICAL GEL 30 GM TUBE TP SCH ×2 (11:43→23:24)
[2022-05-06] MEDS: METHOCARBAMOL 500 MG TABLET PO PRN ×2 (11:44→23:21)
[2022-05-06] MEDS: PRENATAL VITAMINS W/ FOLIC ACID TABLET (FP) PO SCH (11:44)
[2022-05-06] MEDS: MELATONIN 5 MG TABLETS PO SCH (23:21)
[2022-05-06] MEDS: THIAMINE HCL 100 MG TABLET (FP) PO SCH (23:21)
[2022-05-07] MEDS: hydrOXYzine PAMOATE 25 MG CAPSULE (FP) PO SCH ×5 (06:18→22:45)
[2022-05-07] MEDS: CEPHALEXIN MONOHYDRATE 500 MG CAPSULE (UD) PO SCH ×3 (06:18→22:45)
[2022-05-07] MEDS ORDERED: methaDONE HCL 10 MG TABLET (FOR DETOX USE ONLY) PO ONE (10:00)
[2022-05-07] MEDS: CLINDAMYCIN PHOSPHATE 1% TOPICAL GEL 30 GM TUBE TP SCH ×2 (10:34→22:46)
[2022-05-07] MEDS: PRENATAL VITAMINS W/ FOLIC ACID TABLET (FP) PO SCH (10:34)
[2022-05-07] MEDS: diazePAM 5 MG TABLET PO PRN ×2 (18:10→22:47)
[2022-05-07] MEDS: MELATONIN 5 MG TABLETS PO SCH (22:46)
[2022-05-07] MEDS: THIAMINE HCL 100 MG TABLET (FP) PO SCH (22:46)
[2022-05-07] MEDS: METHOCARBAMOL 500 MG TABLET PO PRN (22:47)
[2022-05-08] MEDS: CEPHALEXIN MONOHYDRATE 500 MG CAPSULE (UD) PO SCH ×3 (05:32→21:46)
[2022-05-08] MEDS: hydrOXYzine PAMOATE 25 MG CAPSULE (FP) PO SCH ×5 (05:32→22:38)
[2022-05-08] MEDS ORDERED: methaDONE HCL 10 MG TABLET (FOR DETOX USE ONLY) ONE (09:10)
[2022-05-08] MEDS: diazePAM 5 MG TABLET PO PRN (09:50)
[2022-05-08] MEDS: PRENATAL VITAMINS W/ FOLIC ACID TABLET (FP) PO SCH (09:51)
[2022-05-08] MEDS: CLINDAMYCIN PHOSPHATE 1% TOPICAL GEL 30 GM TUBE TP SCH ×2 (09:53→21:47)
[2022-05-08] MEDS: METHOCARBAMOL 500 MG TABLET PO PRN ×2 (14:21→21:46)
[2022-05-08] MEDS: THIAMINE HCL 100 MG TABLET (FP) PO SCH (21:46)
[2022-05-08] MEDS: MELATONIN 5 MG TABLETS PO SCH (21:46)
[2022-05-09] MEDS: CEPHALEXIN MONOHYDRATE 500 MG CAPSULE (UD) PO SCH ×3 (07:09→23:10)
[2022-05-09] MEDS: hydrOXYzine PAMOATE 25 MG CAPSULE (FP) PO SCH ×5 (07:09→23:21)
[2022-05-09] MEDS ORDERED: methaDONE HCL 10 MG TABLET (FOR DETOX USE ONLY) PO ONE (10:00)
[2022-05-09] MEDS: CLINDAMYCIN PHOSPHATE 1% TOPICAL GEL 30 GM TUBE TP SCH ×2 (11:23→23:33)
[2022-05-09] MEDS: PRENATAL VITAMINS W/ FOLIC ACID TABLET (FP) PO SCH (11:26)
[2022-05-09] MEDS: MELATONIN 5 MG TABLETS PO SCH (23:21)
[2022-05-09] MEDS: THIAMINE HCL 100 MG TABLET (FP) PO SCH (23:21)
[2022-05-09] MEDS: METHOCARBAMOL 500 MG TABLET PO PRN (23:23)
[2022-05-10] MEDS: CEPHALEXIN MONOHYDRATE 500 MG CAPSULE (UD) PO SCH (07:03)
[2022-05-10] MEDS: hydrOXYzine PAMOATE 25 MG CAPSULE (FP) PO SCH (07:03)
[2022-05-10 09:05] VITALS: BP 94/59; PULSE 97; TEMP 98.2
[2022-05-10 13:45] LABS: HEMATOCRIT 42.6 % (35.4-49); HEMOGLOBIN 13.7 GM/dL (11.7-16.9); MCH 25.4 pg (25.7-33.7); MCHC 32.2 g/dl (32.0-35.9); MEAN CELL VOLUME 78.9 fl (80-96); MEAN PLT VOLUME 8.8 fl (7.5-11.1); PLATELET COUNT 319 10^3/uL (134-434); RDW 17.5 % (11.9-15.9); WHITE BLOOD COUNT 3.6 K/mm3 (4.0-10.0)
[2022-05-10 13:55] LABS: CALCIUM 9.1 mg/dL (8.5-10.1)
[2022-05-10 13:56] LABS: BLOOD UREA NITROGEN 11.9 mg/dL (7-18)
[2022-05-10 13:57] LABS: CREATININE 0.8 mg/dL (0.55-1.3)
[2022-05-10 13:59] LABS: BILIRUBIN,TOTAL 0.2 mg/dL (0.2-1); TOT PROT 8.4 g/dl (6.4-8.2)
== END 2022-05-10 09:54 | disposition home or self-care (01) | DRG 773 ==
LOC: YASAS 13:43 → Y3N 17:34
PROVIDERS: ADMIT Allergy & Immunology; ATTEND Surgery
PROC: HZ2ZZZZ Detoxification Services for Substance Abuse Treatment (ICD-10-PCS; principal; 2022-05-05)
DX: F11.23 Opioid dependence with withdrawal (principal); F14.20 Cocaine dependence, uncomplicated; F12.20 Cannabis dependence, uncomplicated; F17.210 Nicotine dependence, cigarettes, uncomplicated; U07.1 COVID-19; L03.115 Cellulitis of right lower limb; L03.116 Cellulitis of left lower limb; L97.929 Non-pressure chronic ulcer of unspecified part of left lower leg with unspecified severity; L97.919 Non-pressure chronic ulcer of unspecified part of right lower leg with unspecified severity; J45.20 Mild intermittent asthma, uncomplicated; M54.50 Low back pain, unspecified; G89.29 Other chronic pain; Z91.013 Allergy to seafood
CPT/HCPCS: 36415; 80053; 85027; 86780; C9803-CS; U0003; U0005